=== PATIENT | male | born 1945 | race Caucasian/White ===

== ENCOUNTER → 2018-12-05 | Outpatient (CLI) | payer MEDICARE, OTHER ==
[~2018-12-05] MED LIST: ACET-1757 PO; ALBU8.5H8 INH; ALPH300T2 PO; AMIO100T4 PO; BUDE10.22 INH; CYAN50008 PO; DILT120C11 PO; GLUC-149 PO; MELA5TAB19 PO; MONT10TA6 PO; MULT-642 PO; OMEP20TA62 PO; OXYC-302 PO; RIVA20TA PO; ROSU20TA2 PO
== END | disposition home or self-care (01) ==
LOC: STAR 11:59 → MERGE 11:59
PROVIDERS: ATTEND Orthopaedic Surgery
DX: Z01.818 Encounter for other preprocedural examination (principal); M19.072 Primary osteoarthritis, left ankle and foot; J45.909 Unspecified asthma, uncomplicated; I10 Essential (primary) hypertension; Z79.51 Long term (current) use of inhaled steroids; Z79.899 Other long term (current) drug therapy; Z88.1 Allergy status to other antibiotic agents; Z88.0 Allergy status to penicillin; Z88.8 Allergy status to other drugs, medicaments and biological substances
CPT/HCPCS: 93005

== ENCOUNTER 2018-12-13 12:03 | Inpatient (IN) | payer MEDICARE, OTHER ==
[2018-12-05 12:52] VITALS: BP 129/82
[~2018-12-13] VITALS: Ht 180.3 cm; Wt 93.6 kg
[2018-12-13] MEDS ORDERED: ACETAMINOPHEN 500 MG TABLET PO ONE (12:30)
[2018-12-13] MEDS ORDERED: GABAPENTIN 300 MG CAPSULE PO ONE (12:30)
[2018-12-13] MEDS ORDERED: LACTATED RINGERS 1,000 ML IV SCH (12:50)
[2018-12-13] MEDS ORDERED: BUPIVACAINE/PF 0.5% ONE (13:31)
[2018-12-13] MEDS ORDERED: LIDOCAINE 1%, 20ML ONE (13:32)
[2018-12-13] MEDS ORDERED: MIDAZOLAM 1 MG/ML, 2ML ONE (13:51)
[2018-12-13] MEDS ORDERED: FENTANYL PF 250 MCG/5ML ONE (13:51)
[2018-12-13] MEDS ORDERED: PROPOFOL 10 MG/ML, 20ML ONE (14:42)
[2018-12-13] MEDS ORDERED: hydrALAzine 20 MG/ML, 1ML ONE (14:42)
[2018-12-13] MEDS ORDERED: DEXAMETHASONE 4 MG/ML, 1ML ONE (14:42)
[2018-12-13] MEDS ORDERED: SUCCINYLCHOLINE 20 MG/ML, 10ML ONE (14:42)
[2018-12-13] MEDS ORDERED: CEFAZOLIN 1,000 MG ONE (14:42)
[2018-12-13] MEDS ORDERED: ROCURONIUM 10 MG/ML,10ML ONE (14:42)
[2018-12-13] MEDS ORDERED: ONDANSETRON 2MG/ML, 2ML ONE (14:42)
[2018-12-13] MEDS ORDERED: EPHEDRINE 50 MG/ML, 1ML ONE (14:42)
[2018-12-13] MEDS ORDERED: hydrALAzine 20 MG/ML, 1ML IV PRN (15:30)
[2018-12-13] MEDS ORDERED: ONDANSETRON 2MG/ML, 2ML IV PRN ×2 (15:30→20:00)
[2018-12-13] MEDS ORDERED: METOPROLOL 1 MG/ML, 5ML IV PRN (15:30)
[2018-12-13] MEDS ORDERED: MIDAZOLAM 1 MG/ML, 2ML IV PRN (15:30)
[2018-12-13] MEDS ORDERED: HYDROmorphone 2 MG/ML, 1ML IVPush PRN (15:30)
[2018-12-13] MEDS ORDERED: OXYcodone 5 MG/5 ML ORAL.SOL UDC PO PRN (15:30)
[2018-12-13] MEDS ORDERED: SCOPOLAMINE PATCH, 1.5MG PATCH.TD72 TD PRN (15:30)
[2018-12-13] MEDS ORDERED: ALBUTEROL/IPRATROPIUM 2.5MG/0.5MG, 3 ML NPPB PRN (15:30)
[2018-12-13] MEDS ORDERED: ROPIvacaine/PF 0.2%, 100ML 550 ML (check volume) INJ ONE (15:30)
[2018-12-13] MEDS ORDERED: FENTANYL PF 100 MCG/2ML IV PRN (15:30)
[2018-12-13] MEDS ORDERED: PROMETHAZINE 25 MG/ML, 1ML IV PRN (15:30)
[2018-12-13] MEDS ORDERED: MEPERIDINE/PF 25MG/0.5ML IVPush PRN (15:30)
[2018-12-13] MEDS ORDERED: OXYcodone 5 MG/5 ML ORAL.SOL UDC ONE (18:07)
[2018-12-13 20:00] VITALS: BP 127/72
[2018-12-13] MEDS ORDERED: morphine SULFATE 10 MG/ML, 1ML IV PRN (20:00)
[2018-12-13] MEDS ORDERED: DIPHENHYDRAMINE 25 MG CAPSULE PO PRN (20:00)
[2018-12-13] MEDS ORDERED: MAGNESIUM HYDROXIDE 8%, 30ML UDC PO PRN (20:00)
[2018-12-13] MEDS ORDERED: LORazepam 1MG TABLET PO PRN (20:00)
[2018-12-13] MEDS ORDERED: SENNA/DOCUSATE TABLET PO PRN (20:00)
[2018-12-13] MEDS ORDERED: BISACODYL 10 MG SUPP PR PRN (20:00)
[2018-12-13] MEDS ORDERED: LORazepam 2 MG/ML, 1ML IV PRN (20:00)
[2018-12-13] MEDS: SODIUM CHLORIDE FLUSH 10ML SYR IVF SCH (20:36)
[2018-12-13] MEDS: DOCUSATE 100 MG CAPSULE PO SCH (20:36)
[2018-12-13] MEDS: CEFAZOLIN PMX 2GM/50ML 50 ML IVPB SCH (23:22)
[2018-12-13 23:47] VITALS: BP 126/70
[2018-12-14] MEDS: OXYcodone 5 MG/5 ML ORAL.SOL UDC PO PRN ×2 (00:24→06:53)
[2018-12-14 03:25] VITALS: BP 130/79
[2018-12-14] MEDS: CEFAZOLIN PMX 2GM/50ML 50 ML IVPB SCH (06:54)
[2018-12-14 07:16] VITALS: BP 130/69
[2018-12-14] MEDS ORDERED: RIVAROXABAN 20 MG TABLET PO SCH (08:00)
[2018-12-14] MEDS: SODIUM CHLORIDE FLUSH 10ML SYR IVF SCH (08:47)
[2018-12-14] MEDS: DOCUSATE 100 MG CAPSULE PO SCH (08:47)
[2018-12-14 10:22] VITALS: BP 123/64
== END 2018-12-14 11:28 | disposition home or self-care (01) | DRG 469 ==
LOC: ORIP 12:16 → MERGE 15:00 → 4NOR 18:44 → DCLOUNGE 12-14 11:10
PROVIDERS: ADMIT Orthopaedic Surgery; ATTEND Orthopaedic Surgery
PROC: 0SPG04Z Removal of Internal Fixation Device from Left Ankle Joint, Open Approach (ICD-10-PCS; 2018-12-13)
PROC: 0LSP0ZZ Reposition Left Lower Leg Tendon, Open Approach (ICD-10-PCS; 2018-12-13)
PROC: 3E0T3BZ Introduction of Anesthetic Agent into Peripheral Nerves and Plexi, Percutaneous Approach (ICD-10-PCS; 2018-12-13)
PROC: 0SRG0JZ Replacement of Left Ankle Joint with Synthetic Substitute, Open Approach (ICD-10-PCS; principal; 2018-12-13 14:45)
DX: M19.072 Primary osteoarthritis, left ankle and foot (principal); M19.172 Post-traumatic osteoarthritis, left ankle and foot; E78.00 Pure hypercholesterolemia, unspecified; I48.0 Paroxysmal atrial fibrillation; I25.10 Atherosclerotic heart disease of native coronary artery without angina pectoris; K21.9 Gastro-esophageal reflux disease without esophagitis; J44.9 Chronic obstructive pulmonary disease, unspecified; Z88.6 Allergy status to analgesic agent; Z88.1 Allergy status to other antibiotic agents; Z88.0 Allergy status to penicillin; Z88.8 Allergy status to other drugs, medicaments and biological substances; Z98.52 Vasectomy status; Z82.61 Family history of arthritis
CPT/HCPCS: 36415; 76000; 85014; 85018; G0378; J0690; J1100; J2250; J2405; J2704; J3010; J3490; C1776; J0330; J0360; J7120

== ENCOUNTER → 2019-11-21 | Outpatient (CLI) | payer OTHER ==
[~2019-11-21] MED LIST changes: -ACET-1757 PO; +ACET-2065 PO; +AMMO385C5 TP; +MELA5TAB14 PO; -MELA5TAB19 PO
[2019-11-21 12:33] LABS: BASOPHILS # (AUTO) 0.03 x10^3/uL (0-0.1); BASOPHILS % (AUTO) 1 % (0-1); EOSINOPHILS # (AUTO) 0.22 x10^3/uL (0-0.4); EOSINOPHILS % (AUTO) 4 % (1-7); LYMPHOCYTES # (AUTO) 1.89 x10^3/uL (1-3.4); LYMPHOCYTES % (AUTO) 35 % (22-44); MD NO; MEAN CORPUSCULAR HEMOGLOBIN 30.1 pg (27.5-34.5); MEAN CORPUSCULAR HGB CONC 33.4 g/dL (33.2-36.2); MEAN CORPUSCULAR VOLUME 90.2 fL (81-97); MEAN PLATELET VOLUME 7.9 fL (7.4-10.4); MONOCYTES # (AUTO) 0.76 x10^3/uL (0.2-0.8); MONOCYTES % (AUTO) 14 % (2-9); NEUTROPHILS # (AUTO) 2.45 x10^3/uL (1.8-6.8); NEUTROPHILS % (AUTO) 46 % (42-75); PLATELET COUNT 263 x10^3/uL (130-400); RED BLOOD COUNT 4.95 x10^6/uL (4.38-5.82); RED CELL DISTRIBUTION WIDTH 14.7 % (9.4-14.8)
[2019-11-21 12:44] LABS: INTERNATIONAL NORMALIZED RATIO 1.07 (0.93-1.1); PROTHROMBIN TIME 11.4 Seconds (9.6-11.5)
[2019-11-21 14:00] LABS: ANION GAP 5 mmol/L (5-15); CALCIUM 8.9 mg/dL (8.5-10.1); CHLORIDE 107 mmol/L (98-107)
[2019-11-21 14:03] LABS: CREATININE 0.86 mg/dL (0.7-1.3)
== END | disposition home or self-care (01) ==
LOC: STAR 11:17
PROVIDERS: ATTEND Orthopaedic Surgery
DX: Z01.818 Encounter for other preprocedural examination (principal); M17.11 Unilateral primary osteoarthritis, right knee; M25.561 Pain in right knee
CPT/HCPCS: 36415; 80048; 83036; 85025; 85610; 85730; 87081; 93005